=== PATIENT | female | born 1955 | race Caucasian/White ===

== ENCOUNTER 2020-06-04 10:11 | Outpatient (REF) | payer OTHER, SELFPAY ==
[2020-06-04 10:14] LABS: MANUAL DIFF FLAG NO
[2020-06-04 10:43] LABS: Basophils Absolute Auto 0.1 X10*3/uL (0.0-0.2); Basophils Percent Auto 0.9 % (0-2); Eosinophils Absolute Auto 0.4 X10*3/uL (0.0-0.4); Eosinophils Percent Auto 6.7 % (0-4); Hematocrit 41.3 % (37-47); Hemoglobin 13.9 g/dl (12.0-16.0); Imm Gran Abs Auto 0.01 X10*3/uL (0.00-0.03); Imm Gran Pct Auto 0.2 % (0.0-0.4); Lymphocytes Absolute Auto 1.4 X10*3/uL (1.2-4.9); Lymphocytes Percent Auto 24.7 % (20-40); Mean Corpuscular HGB Conc 33.7 g/dl (31.0-35.0); Mean Corpuscular Hemoglobin 31.2 pg (27.0-33.0); Mean Corpuscular Volume 92.8 fL (80-98); Mean Platelet Volume 9.3 fL (9.4-12.3); Monocytes Absolute Auto 0.6 X10*3/uL (0.1-1.2); Monocytes Percent Auto 11.3 % (2-11); Neutrophils Absolute Auto 3.1 X10*3/uL (2.0-8.3); Neutrophils Percent Auto 56.2 % (45-73); Platelet Count 245 X10*3/uL (160-400); Red Blood Count 4.45 X10*6/uL (4.20-5.50); White Blood Count 5.5 X10*3/uL (4.8-10.8)
== END 2020-06-04 10:12 | disposition home or self-care (01) ==
LOC: HO.LNP 10:11
PROVIDERS: Visit Provider Internal Medicine
DX: D70.9 Neutropenia, unspecified (principal)
CPT/HCPCS: 85025

== ENCOUNTER 2022-06-01 07:20 | Day surgery (SDC) | payer MEDICARE, SELFPAY ==
--- NOTE | 2022-05-31 13:29 | HO.ANESPROP2 ---
HPI - Anesthesia Eval Consult details Narrative: 67yo F for Colonoscopy PMFSH Surgical History Surgical History (Updated 05/31/22 @ 10:16 by Alexa Vance RN) H/O section H/O colonoscopy Meds Allergies Allergy/AdvReac Type Severity Reaction Status Date / Time Cephalosporins Allergy Unknown Verified 05/31/22 10:15 ondansetron Allergy Unknown Verified 05/31/22 10:15 Penicillins [PCN] Allergy Unknown Verified 05/31/22 10:15 Home Medications Medication Instructions Recorded Confirmed Last Taken Type Vitamin D3 05/31/22 Unknown History clobetasol 0.05 % topical cream 1 appl topical BID 05/31/22 05/31/22 Unknown History estradiol 10 mcg vaginal tablet mcg vaginal 05/31/22 05/31/22 Unknown History (Yuvafem) Exam Exam Date and Time: May 31, 2022 1329 Assessment and Plan Assessment Anesthesia Assessment: Chart Reviewed
[2022-06-01 07:47] VITALS: BMI 29.2
[2022-06-01 07:52] VITALS: BP 171/81; PULSE 62; RESP 16; TEMP 36.6; O2SAT 98
--- NOTE | 2022-06-01 07:54 | HO.ANESPROP2 ---
HPI - Anesthesia Eval Consult details Narrative: personalho polyp screening [facility] Family History Family history of problems with anesthesia: No Surgical History Surgical History H/O section H/O colonoscopy History of Problems with Anesthesia: Yes (ponv) Social History Social History Patient Tobacco Use Status: Never used Tobacco Use of substances other than those prescribed or required for medical reasons: No Are you DNR?: No Advance Directives: No Advance Directives Information Provided: Yes Meds Allergies Allergy/AdvReac Type Severity Reaction Status Date / Time Cephalosporins Allergy Unknown Verified 05/31/22 10:15 ondansetron Allergy Unknown Verified 05/31/22 10:15 Penicillins [PCN] Allergy Unknown Verified 05/31/22 10:15 Active Medications: Current Medications Lactated Ringer's (Lr) 1,000 mls @ 100 mls/hr IVCONT .Q10H HARISH Sodium Biphosphate/Sodium Phosphate (Sodium Phosphate,[place]-Dibasic 133 Ml Enema) 133 ml OK ONCE PRN PRN Reason: Poor Colonoscopy Prep Results Home Medications Medication Instructions Recorded Confirmed Last Taken Type Vitamin D3 05/31/22 Unknown History clobetasol 0.05 % topical cream 1 appl topical BID 05/31/22 05/31/22 Unknown History estradiol 10 mcg vaginal tablet mcg vaginal 05/31/22 05/31/22 Unknown History (Yuvafem) Exam Exam Date and Time: June 01, 2022 0754 Height,Weight and Vital Signs: Height 4 ft 10 in Weight 63.503 kg Airway Mallampati Class: II TM Dist: >3cm Neck ROM: Full Heart: rr Lungs: cta Assessment and Plan Assessment Anesthesia Assessment: Anesthesia Plan Discussed, Smoking Cess. Discussed and Chart Reviewed Final Anesthetic Review Family History of Problems with Anesthesia: No History of Problems with Anesthesia: Yes (ponv) NPO: Yes ASA Class: I and II Final Preanesthetic Review: No Changes in Pt Med Stat, Meds/Allgs Chart Reviewed, Consent Obtained/Reviewed and Anes Risks/Benef Reviewed Patient Risk: Low Procedure Risk: Low Anesthetic Plan Anesthetic Plan: MAC: Disposition: Standard PACU
[2022-06-01] MEDS: Lactated Ringers 1,000 ML 100 ML IVCONT (07:55)
[2022-06-01] MEDS: Promethazine HCL 25 MG TABLET PO (08:01)
--- NOTE | 2022-06-01 09:29 | P.BOP_ITS ---
Brief Operative Note Date of Service: 06/01/22 Pre-op diagnosis: Screening Post-op diagnosis: other (Colon polyps) Procedure: Colonoscopy to the cecum and TI with bx/removal of polyps Surgeon: Kota Morales Anesthesia: MAC Was an [employer] used for this Procedure?: No Estimated blood loss (mL): 2.0 Pathology: other (A. Polyps at 30cm B. Rectal polyp) Condition: stable Disposition: PACU
[2022-06-01 09:34] VITALS: BP 134/74; PULSE 67; RESP 14; TEMP 36.2; O2SAT 97
[2022-06-01 09:49] VITALS: BP 148/64; PULSE 54; RESP 16; TEMP 36.3; O2SAT 99
--- NOTE | 2022-06-01 20:58 | OP_ITS ---
DATE OF SERVICE: 06/01/2022 SURGEON: Kota Morales MD INDICATIONS: The patient presents for evaluation of colorectal cancer screening and personal history of tubular adenoma of the colon. Full consent has been obtained from her for this, including risks of bleeding and perforation. PREOPERATIVE DIAGNOSIS: Colorectal cancer screening and personal history of tubular adenoma of the colon. POSTOPERATIVE DIAGNOSIS: Colorectal cancer screening, personal history of tubular adenoma of the colon, colon polyps, diverticulosis, and internal hemorrhoids. PROCEDURE PERFORMED: Colonoscopy to the cecum and terminal ileum with biopsy and removal of polyps. ESTIMATED BLOOD LOSS: COMPLICATIONS: ANESTHESIA: Monitored anesthesia care. ASSISTANTS: SPECIMENS: DESCRIPTION OF PROCEDURE: The patient was placed in the left lateral decubitus position. The digital rectal exam revealed no abnormalities. The Olympus video pediatric colonoscope was entered into the rectum and advanced easily to cecum. Once in the cecum, I did identify normal appearing cecal polyps in the appendiceal orifice, a normal-appearing ileocecal valve. The terminal ileum was cannulated, appeared normal. Scope was withdrawn back in the colon. The entire cecum and ileocecal valve appeared normal. Scope was slowly withdrawn assessing all mucosal surface carefully. Preparation was excellent. At 30 cm, were 2 approximately 3 mm polyps, which were each biopsied and completely removed with the cold biopsy forceps. In the proximal rectum was another 3 mm polyp, which was biopsied and completely removed with the cold biopsy forceps. I did not visualize any other polyps, colitis, nor angiodysplasia. There was a mild amount of sigmoid diverticulosis. In the rectum, the scope was retroflexed visualizing internal hemorrhoids, but no other pathology. The rectal mucosa appeared normal. Scope was straightened out and withdrawn from the patient. She tolerated the procedure well and was returned to the recovery area in stable condition. IMPRESSION: 1. Colon polyps. 2. Diverticulosis. 3. Internal hemorrhoids. PLAN: Results of the pathology will be checked. I recommended a repeat colonoscopy in 5 years. She will otherwise see me on a p.r.n. basis. MD RAGINI Cadet/CARMEN / [id number]
== END 2022-06-01 10:24 | disposition home or self-care (01) ==
PROVIDERS: PCP Internal Medicine; Visit Provider Internal Medicine
PROC: 0DJD8ZZ Inspection of Lower Intestinal Tract, Via Natural or Artificial Opening Endoscopic (ICD-10-PCS; CPT 45378; principal; 2022-06-01 08:30)
DX: Z12.11 Encounter for screening for malignant neoplasm of colon (principal); Z86.010 Personal history of colon polyps; D12.5 Benign neoplasm of sigmoid colon; K62.1 Rectal polyp; K57.30 Diverticulosis of large intestine without perforation or abscess without bleeding; K64.8 Other hemorrhoids; Z79.899 Other long term (current) drug therapy; Z88.0 Allergy status to penicillin; Z88.8 Allergy status to other drugs, medicaments and biological substances
CPT/HCPCS: 45380; 88305

== ENCOUNTER 2022-08-29 11:05 | Outpatient (REF) | payer MEDICARE, SELFPAY | END 2022-08-29 11:06 | disposition home or self-care (01) | LOC: HO.LNP 11:05 | PROVIDERS: Visit Provider Internal Medicine | DX: Z00.00 Encounter for general adult medical examination without abnormal findings (principal); I10 Essential (primary) hypertension; R79.9 Abnormal finding of blood chemistry, unspecified; E55.9 Vitamin D deficiency, unspecified; E78.00 Pure hypercholesterolemia, unspecified; R82.90 Unspecified abnormal findings in urine | CPT/HCPCS: 80053; 80061; 81001; 82306; 85025; 87086 ==